=== PATIENT | female | born 1990 | race Caucasian/White ===

== ENCOUNTER 2016-10-03 02:27 | Inpatient (IN) | payer MEDICAID ==
[~2016-10-03] VITALS: Ht 160 cm; Wt 89.4 kg
[2016-10-03] MEDS ORDERED: LR 1,000 ML IV SCH (04:02)
[2016-10-03] MEDS ORDERED: LR 1,000 ML IV ONE (04:02)
[2016-10-03] MEDS ORDERED: OXYTOCIN/NORMAL SALINE 1,000 ML IV SCH (04:02)
[2016-10-03 04:14] VITALS: BP_SYST 129
[2016-10-03] MEDS ORDERED: TERBUTALINE SULFATE 1 MG/ML VIAL SUBCUT ONE (04:15)
[2016-10-03] MEDS ORDERED: AMPICILLIN SODIUM 2 GM in NS 100 ML IV ONE (04:15)
[2016-10-03] MEDS ORDERED: NALBUPHINE HCL 10 MG/ML AMP IVP PRN (04:15)
[2016-10-03 04:42] LABS: BASOPHILS % (AUTO) 0.3 % (0.0-2.0); EOSINOPHILS % (AUTO) 0.3 % (0.0-4.0); HEMATOCRIT 37.6 % (36-48); HEMOGLOBIN 12.5 g/dL (12.0-16.0); LYMPHOCYTES # (AUTO) 1.4 K/uL (1.0-5.5); LYMPHOCYTES % (AUTO) 18.7 % (20.5-51.5); MEAN CORPUSCULAR HEMOGLOBIN 29 pg (27-31); MEAN CORPUSCULAR HGB CONC 33 % (32-36); MEAN CORPUSCULAR VOLUME 87 fL (79.0-98.0); MONOCYTES # (AUTO) 0.5 K/uL (0.0-1.0); MONOCYTES % (AUTO) 6.1 % (1.7-9.3); NEUTROPHILS # (AUTO) 5.8 K/uL (1.8-7.7); NEUTROPHILS % (AUTO) 74.6 % (40.0-70.0); PLATELET COUNT (AUTO) 150 K/uL (130-430); RED BLOOD CELL COUNT(AUTO) 4.32 MIL/uL (4.2-6.2); RED CELL DISTRIBUTION WIDTH 14.9 % (9.0-15.0); WHITE BLOOD COUNT (AUTO) 7.7 K/uL (4.8-10.8)
[2016-10-03] MEDS ORDERED: AMPICILLIN SODIUM 2 GM VIAL ONE (04:55)
[2016-10-03] MEDS ORDERED: AMPICILLIN SODIUM 1 GM in NS 50 ML IV SCH (08:15)
[2016-10-03] MEDS ORDERED: OXYTOCIN/NORMAL SALINE 1,000 ML IV ONE (12:26)
[2016-10-03] MEDS ORDERED: DOCUSATE SODIUM 100 MG CAPSULE PO PRN (12:30)
[2016-10-03] MEDS ORDERED: IBUPROFEN 600 MG TABLET ONE (12:55)
[2016-10-03] MEDS ORDERED: LIDOCAINE PF 1% 30ML(POUR BTL) INJ ONE (15:00)
[2016-10-03] MEDS: IBUPROFEN 600 MG TABLET PO SCH (17:58)
[2016-10-04] MEDS: IBUPROFEN 600 MG TABLET PO SCH ×3 (06:00→12:20)
[2016-10-04 06:47] LABS: BASOPHILS % (AUTO) 0.3 % (0.0-2.0); EOSINOPHILS # (AUTO) 0.1 K/uL (0.0-0.4); EOSINOPHILS % (AUTO) 0.9 % (0.0-4.0); HEMATOCRIT 35.4 % (36-48); HEMOGLOBIN 11.8 g/dL (12.0-16.0); LYMPHOCYTES # (AUTO) 2.1 K/uL (1.0-5.5); LYMPHOCYTES % (AUTO) 27.1 % (20.5-51.5); MEAN CORPUSCULAR HEMOGLOBIN 29 pg (27-31); MEAN CORPUSCULAR HGB CONC 34 % (32-36); MEAN CORPUSCULAR VOLUME 86 fL (79.0-98.0); MONOCYTES # (AUTO) 0.4 K/uL (0.0-1.0); MONOCYTES % (AUTO) 5.4 % (1.7-9.3); NEUTROPHILS # (AUTO) 5.2 K/uL (1.8-7.7); NEUTROPHILS % (AUTO) 66.3 % (40.0-70.0); PLATELET COUNT (AUTO) 119 K/uL (130-430); RED CELL DISTRIBUTION WIDTH 14.8 % (9.0-15.0); WHITE BLOOD COUNT (AUTO) 7.8 K/uL (4.8-10.8)
== END 2016-10-04 15:15 | disposition home or self-care (01) | DRG 560 ==
LOC: SPU 02:27 → OBSVTOIN 03:35
PROVIDERS: ADMIT Obstetrics & Gynecology; ATTEND Obstetrics & Gynecology
PROC: 10E0XZZ Delivery of Products of Conception, External Approach (ICD-10-PCS; principal; 2016-10-03)
PROC: 0HQ9XZZ Repair Perineum Skin, External Approach (ICD-10-PCS; 2016-10-03)
DX: O99.824 Streptococcus B carrier state complicating childbirth (principal); Z37.0 Single live birth; O70.0 First degree perineal laceration during delivery; Z3A.40 40 weeks gestation of pregnancy
CPT/HCPCS: 36415; 81002-TC; 85018-TC; 85025; 86592; 86886; 86900; 86901; G0378; J0290; J2001; J2300; J2590